=== PATIENT | female | born 1990 | race Caucasian/White ===

== ENCOUNTER 2017-10-23 02:54 | Emergency (ER) | payer MEDICAID, SELFPAY ==
[2017-10-23 02:56] VITALS: BP 131/69; PULSE 66; RESP 18; TEMP 36.9; O2SAT 98; BMI 34.7
--- NOTE | 2017-10-23 03:04 | CT_ITS ---
STUDY: CT ABDOMEN AND PELVIS WITHOUT CONTRAST REASON FOR EXAM: Female, 27 years old. Left flank and left lower quadrant pain. RADIATION DOSAGE (If Supplied By Facility): CTDIvol = ( 15.75 ) mGy, DLP = ( 830.38 ) mGycm TECHNIQUE: Transaxial images were obtained from the dome of the diaphragm to the symphysis pubis without oral contrast, and without intravenous contrast. Sagittal and coronal images were reconstructed. Individualized dose optimization techniques were used for this CT. COMPARISON: None. FINDINGS: The visualized lung bases are unremarkable. The visualized portions of the heart are within normal limits. Normal liver. Normal gallbladder and extrahepatic biliary system. Normal spleen. Normal pancreas. Normal bilateral adrenal glands. Normal right kidney. Minimal left hydronephrosis. 0.3 cm proximal ureteral stone. Normal visualized stomach. Normal small intestine. Normal colon. The appendix is well visualized and appears normal. Normal abdominal aorta. Normal inferior vena cava. Normal retroperitoneum. No intra-abdominal free air. Normal urinary bladder. Normal visualized uterus. No adnexal masses seen. Normal abdominal wall. Normal osseous structures. CT/Abdomen/Pelvis without Cont IMPRESSION: Minimal left hydronephrosis secondary to a 0.3 cm proximal ureteral stone. Electronically Signed: Darrius Harmon MD at 4:41 EST , Service support ,
--- NOTE | 2017-10-23 03:10 | ED.DCSUM_ITS ---
- ER Visit Summary Date of Service: 10/23/17 Chief Complaint: [Flank pain] History of Present Illness: The patient is a 27 F [presents the emergency department with left flank pain. It started about 1 hour ago. It woke her up from sleep. She has associated nausea. It is worse with standing up and lying on her stomach. Bowel movements have been normal. Urination has been normal. She has had a left oophorectomy and salpingectomy for tubal in the past no other abdominal surgeries. No fevers or chills. She rates the pain as a sharp 8 out of 10. She has never had similar pain in the past Hysical Examination: [] WN WD NAD PERRL EOMI MMM NECK supple and nontender, no masses RRR no murmur rub or gallop, no peripheral edema, symmetric radial pulses CTAB no respiratory distress ABDOMEN is soft she has tenderness in the left lower quadrant, normal bowel sounds, no distension, no rebound or guarding He has left CVA tenderness SKIN is warm and dry no rashes Alert and Oriented x3, CN II-XII in tact, no motor or sensory deficits, gait normal No lymphadenopathy Test Results: [] Emergency Department Course and Treatment: [She was given fluids morphine Zofran and Toradol. Screening labs are obtained. Urine was sent. CT of the abdomen and pelvis was obtained. He had a mild leukocytosis. BMP was normal. Urine had greater than 100 red blood cells but no evidence of infection. Patient was initially feeling better but then her pain came back. Given additional dose of morphine. CT showed a 3 mm stone with mild hydronephrosis on the left. She was given precautions for which she return to the emergency department. She will be did discharged with Percocet Zofran ibuprofen and Flomax. She has an appointment with a new doctor on Saturday. She does not know their name. She was advised to call their office and let them know about her visit to the emergency department. Treatment Plan: [] Disposition: [Discharge] Impression: [Left urolithiasis] This note was generated with [employer] dictation software. It may contain incorrect words, spelling, and punctuation that were not noted in review of the chart prior to signing ED Disposition - Plan for ED Patient: Chief Complaint: Flank Pain Referrals: Care Physician,No Primary [Primary Care Provider] -
[2017-10-23 03:18] LABS: Bacteria 0 SEEN /hpf (None Seen); Mucous, Urine 0 SEEN /hpf (<or=2+); White Blood Cells 0 SEEN /hpf (0-5)
[2017-10-23 03:19] LABS: Color, Urine Yellow (Yellow); Glucose, Dipstick Normal (Normal); Ketone-Dipstick 5 mg/dl (Negative); Leukocyte Esterase-Dipstick 25 /ul (Negative); Nitrite-Dipstick Negative (Negative); Occult Blood-Urine 250 /ul (Negative); Protein-Dipstick 30 mg/dl (Negative); Urine Bilirubin Dipstick Negative (Negative); Urine Clarity Cloudy (Clear); Urine Urobilinogen Normal (Normal)
[2017-10-23 03:31] LABS: Red Blood Cells-Urine > 100 SEEN /hpf (0-5); Squamous Epithelial Cells - UA 10-25 SEEN /hpf (5-10)
[2017-10-23] MEDS: Ketorolac 30 MG/ML Syringe IV (03:34)
[2017-10-23] MEDS: 0.9% Normal Saline 1,000 ML 1000 ML IV (03:34)
[2017-10-23] MEDS: Ondansetron 4 MG/2 ML Vial IV (03:34)
[2017-10-23 03:40] LABS: Absolute Lymphocyte Count 3.47 X10^3/ul (0.83-4.51); Absolute Neutrophil Count 6.9 X10^3/uL (2.0-7.7); Basophil# 0.02 X10^3/uL; Basophil% 0.2 % (0-1); Eosinophil# 0.49 X10^3/uL; Eosinophils% 4.2 % (0-5); Hematocrit 40.4 % (37-47); Hemoglobin 13.5 g/dl (12.0-15.0); Lymphocyte # 3.47 X10^3/ul (4.0); Lymphocyte % 29.4 % (19-41); Mean Corp Hgb Conc 33.4 g/gl (32-36); Mean Corpuscular Hgb 29.9 pg (27.0-32.0); Mean Corpuscular Volume 89.4 fL (81-99); Mean Platelet Vol. 9.8 fl (6.2-12.0); Monocyte# 0.85 X10^3/uL; Monocyte% 7.2 % (0-10); Neutrophil # 6.93 X10^3/uL (2.7-7.7); Neutrophil % 58.7 % (47-70); Platelet Count 319 K/mm3 (150-450); RBC Distribution Width CV 13.6 % (11.6-14.6); RBC Distribution Width SD 44.7 fl (35.1-43.9); Red Blood Count 4.52 M/mm3 (4.2-5.4); White Blood Count 11.8 K/mm3 (4.4-11.0)
[2017-10-23 03:41] LABS: POSITIVE COUNT NO; POSITIVE DIFFERENTIAL NO; POSITIVE MORPHOLOGY NO
[2017-10-23 03:56] LABS: AST(SGOT) 16 U/L (15-37); Alanine Aminotransfer ALT/SGPT 26 U/L (13-56); Albumin, Serum 3.9 g/dL (3.2-5.0); Alkaline Phosphatase 122 U/L (45-117); Anion Gap 7 (5-15); BUN 13 mg/dL (7-18); Calcium,Total 9.2 mg/dL (8.5-10.1); Chloride 107 mmol/L (98-107); Creatinine, Serum 0.72 mg/dL (0.55-1.02); EST Glomerular Filtration Rate 101 mL/min (>60); Est Glom Filt Rate - Afr Amer 122 mL/min (>60); Estimated Creatinine Clearance 103.74 ml/min; Glucose 132 mg/dL (74-106); Potassium 3.5 mmol/L (3.5-5.1); Protein, Total 7.9 g/dL (6.4-8.2); Sodium Level 142 mmol/L (136-145)
[2017-10-23 03:57] LABS: Pregnancy, Serum, hCG Quali. NEGATIVE Negative (0-9 Nonpreg)
--- NOTE | 2017-10-23 04:52 | ED.DEP ---
ED Disposition - Plan for ED Patient: Chief Complaint: Flank Pain Instructions: ED Stone Renal W Colic Prescriptions: Oxycodone HCl/Acetaminophen [Percocet 5/325] 1 - 2 tablet PO Q6H PRN PRN 3 Days #16 tablet PRN Reason: Pain Ondansetron [Zofran Odt] 4 mg PO Q8H PRN PRN #10 tablet PRN Reason: Nausea Ibuprofen 600 mg PO 4X/DAY PRN PRN #20 tablet PRN Reason: Pain Tamsulosin HCl [Flomax] 0.4 mg PO DAILY #7 capsule Referrals: your, doctor [Other] - 10/25/17
[2017-10-23 05:25] VITALS: BP 140/79; PULSE 88; RESP 18; O2SAT 98
== END 2017-10-23 05:26 | disposition home or self-care (01) ==
LOC: ED 04:29
PROVIDERS: Emergency Provider Emergency Medicine
DX: N20.9 Urinary calculus, unspecified (principal); N13.30 Unspecified hydronephrosis; Z72.0 Tobacco use
CPT/HCPCS: 74176; 80053; 81001; 84703; 85025; 99283; J7030; J2405

== ENCOUNTER → 2019-01-28 16:13 | Outpatient (CLI) | payer MEDICAID, SELFPAY ==
[2019-01-28 16:13] VITALS: BMI 34.7
[2019-01-28 18:53] LABS: Chlamydia Trachomatis by PCR Negative (Negative); Neisserai gonorrhoeae by PCR Negative (Negative); Probe Check PASS; Sample Adequacy Control PASS; Specimen Processing Control PASS
== END ==
PROVIDERS: Visit Provider Obstetrics & Gynecology
DX: Z11.3 Encounter for screening for infections with a predominantly sexual mode of transmission (principal)
CPT/HCPCS: 87491; 87591

== ENCOUNTER → 2019-02-02 09:02 | Outpatient (CLI) | payer MEDICAID, SELFPAY ==
[2019-01-28 16:13] VITALS: BMI 34.7
[2019-02-02 10:47] LABS: Color, Urine Yellow (Yellow); Glucose, Dipstick 1000 mg/dl (Normal); Ketone-Dipstick Negative (Negative); Leukocyte Esterase-Dipstick 25 /ul (Negative); Nitrite-Dipstick Negative (Negative); Occult Blood-Urine Negative /ul (Negative); Protein-Dipstick Negative (Negative); Urine Bilirubin Dipstick Negative (Negative); Urine Clarity Clear (Clear); Urine Urobilinogen Normal (Normal)
[2019-02-02 10:51] LABS: Absolute Lymphocyte Count 2.71 X10^3/ul (0.83-4.51); Absolute Neutrophil Count 6.8 X10^3/uL (2.0-7.7); Basophil# 0.03 X10^3/uL; Basophil% 0.3 % (0-1); Eosinophil# 0.46 X10^3/uL; Eosinophils% 4.3 % (0-5); Hematocrit 37.8 % (37-47); Hemoglobin 12.6 g/dl (12.0-15.0); Lymphocyte # 2.71 X10^3/ul (4.0); Lymphocyte % 25.2 % (19-41); Mean Corp Hgb Conc 33.3 g/gl (32-36); Mean Corpuscular Hgb 28.8 pg (27.0-32.0); Mean Corpuscular Volume 86.5 fL (81-99); Mean Platelet Vol. 10.3 fl (6.2-12.0); Monocyte# 0.63 X10^3/uL; Monocyte% 5.8 % (0-10); Neutrophil # 6.81 X10^3/uL (2.7-7.7); Neutrophil % 63.2 % (47-70); Platelet Count 304 K/mm3 (150-450); RBC Distribution Width CV 13.4 % (11.6-14.6); RBC Distribution Width SD 41.6 fl (35.1-43.9); Red Blood Count 4.37 M/mm3 (4.2-5.4); White Blood Count 10.8 K/mm3 (4.4-11.0)
[2019-02-02 10:53] LABS: POSITIVE COUNT NO; POSITIVE DIFFERENTIAL NO; POSITIVE MORPHOLOGY NO
[2019-02-02 11:06] LABS: Glucose Challenge Gest 1H 50g 184 mg/dL (70-140); Thyroid Stim Hormone (TSH) 1.42 uIU/mL (0.358-3.74)
[2019-02-02 12:14] LABS: HIV - WCH Non-Reactive (Nonreactive); Rubella IgG > 500.0 IU/mL
[2019-02-02 13:36] LABS: Amphetamine Urine VISTA NEGATIVE (<1000 ng/mL); Barbiturate Urine VISTA NEGATIVE (< 200 ng/mL); Benzodiazepine Urine VISTA NEGATIVE (< 200 ng/mL); Cocaine Urine VISTA NEGATIVE (< 300 ng/mL); Ecstacy Urine VISTA NEGATIVE (< 500 ng/mL); Methadone Urine VISTA NEGATIVE (< 300 ng/mL); PCP Urine VISTA NEGATIVE (< 25 ng/mL); THC Urine VISTA NEGATIVE (< 50 ng/mL); Vista UDS pH Range 5
[2019-02-03 16:36] LABS: HEPATITIS B SURFACE AG Negative (Negative); Hep C Antibodies <0.1 s/co ratio (0.0-0.9)
[2019-02-06 02:05] LABS: Prenatal RPR NONREACTIVE (NONREACTIVE)
== END ==
PROVIDERS: Visit Provider Obstetrics & Gynecology
DX: Z34.81 Encounter for supervision of other normal pregnancy, first trimester (principal)
CPT/HCPCS: 36415; 80307; 81002; 82950; 84443; 85025; 86703; 86762; 86803; 87340

== ENCOUNTER → 2019-02-23 09:48 | Outpatient (CLI) | payer MEDICAID, SELFPAY ==
[2019-01-28 16:13] VITALS: BMI 34.7
[2019-02-23 10:43] LABS: Glucose GTT-Gestation. Fasting 99 mg/dL (<105)
[2019-02-23 12:07] LABS: Glucose GTT-Gestational 1 Hr 198 mg/dL (<190)
--- NOTE | 2019-02-23 13:10 | CER_PTH ---
PATIENT: SLOAN COLLINS LOC: [facility] U#:[id number] AGE/SX: 34/F ROOM: RE02/23/[address]: Dr. Erica Morales MD : 1990 BED: DIS: SPEC #: [id number] RECD: 02/23/19 15:43 STATUS: STACEY REAleta #: [id number] DONNELL: 02/23/19 13:[address]: Erica Morales DEPT: SURGICAL PATHOLOGY RECD BY: Oleksandr Garcia ENTERED: 02/24/19 09:21 SP TYPE: CERV OTHR DR: No Primary Care Phys Tissues: Uterine cervix, NOS Procedures: Surgery Specimen Level IV HEADER OPERATION: Polypectomy PRE-OP DIAGNOSIS: Spotting TISSUE SUBMITTED: Cervical polyp MICROSCOPIC DIAGNOSIS Cervical polyp, polypectomy: Inflamed benign endocervical polyp with focal decidual changes. SJ:oscar 02/25/19 MICROSCOPIC DESCRIPTION Slides are reviewed. GROSS DESCRIPTION Received in fixative is one container labeled with the patient's name and designated cervical polyp. The specimen consists of a smooth, glistening, light austin polyp measuring 2 x 1 x 0.2 cm. The specimen is totally submitted in one cassette. / AM:oscar 02/24/19 TC:5 CPT: 44109
== END ==
PROVIDERS: Referring Provider Obstetrics & Gynecology; Visit Provider Obstetrics & Gynecology
DX: O99.810 Abnormal glucose complicating pregnancy (principal); Z3A.00 Weeks of gestation of pregnancy not specified; Z3A.01 Less than 8 weeks gestation of pregnancy; N84.1 Polyp of cervix uteri
CPT/HCPCS: 36415; 82951; 82952; 88305

== ENCOUNTER 2019-03-11 16:30 | Outpatient (RCR) | payer MEDICAID, SELFPAY ==
[2019-01-28 16:13] VITALS: BMI 34.7
== END 2019-03-15 23:59 | disposition home or self-care (01) ==
LOC: DC 16:30
PROVIDERS: Visit Provider Obstetrics & Gynecology
DX: O24.119 Pre-existing type 2 diabetes mellitus, in pregnancy, unspecified trimester (principal)
CPT/HCPCS: 97802; G0108

== ENCOUNTER 2019-03-31 14:00 | Outpatient (RCR) | payer MEDICAID, SELFPAY ==
[2019-01-28 16:13] VITALS: BMI 34.7
== END 2019-04-15 23:59 ==
LOC: DC 14:00
PROVIDERS: Visit Provider Obstetrics & Gynecology
DX: O24.119 Pre-existing type 2 diabetes mellitus, in pregnancy, unspecified trimester (principal); Z3A.00 Weeks of gestation of pregnancy not specified

== ENCOUNTER 2019-04-27 11:00 | Outpatient (RCR) | payer MEDICAID, SELFPAY ==
[2019-01-28 16:13] VITALS: BMI 34.7
== END 2019-05-16 23:59 ==
LOC: DC 11:00
PROVIDERS: Visit Provider Obstetrics & Gynecology
DX: O24.119 Pre-existing type 2 diabetes mellitus, in pregnancy, unspecified trimester (principal); Z3A.00 Weeks of gestation of pregnancy not specified

== ENCOUNTER → 2019-06-29 11:46 | Outpatient (CLI) | payer BC, MEDICAID, SELFPAY ==
[2019-01-28 16:13] VITALS: BMI 34.7
[2019-06-29 13:27] LABS: Hematocrit 34.5 % (37-47); Hemoglobin 11.5 g/dL (12.0-15.0); Mean Corp Hgb Conc 33.3 g/dL (32-36); Mean Corpuscular Hgb 30.3 pg (27.0-32.0); Mean Corpuscular Volume 90.8 fL (81-99); Mean Platelet Vol. 10.1 fl (6.2-12.0); Platelet Count 325 K/mm3 (150-450); RBC Distribution Width SD 45.5 fl (35.1-43.9); White Blood Count 12.8 K/mm3 (4.4-11.0)
== END ==
PROVIDERS: Visit Provider Obstetrics & Gynecology
DX: Z34.93 Encounter for supervision of normal pregnancy, unspecified, third trimester (principal)
CPT/HCPCS: 36415; 85027

== ENCOUNTER 2019-08-13 10:45 | Outpatient (CLI) | payer BC, MEDICAID, SELFPAY ==
[2019-01-28 16:13] VITALS: BMI 34.7
[2019-08-13 11:07] VITALS: BMI 36.2
--- NOTE | 2019-08-13 23:55 | OB.TRI.NOTE ---
- Problem List (1) 34 weeks gestation of Status: Acute (2) Gestational diabetes Status: Acute Qualifiers: Gestational diabetes mellitus control: insulin-controlled Trimester: third trimester Qualified Code(s): O24.414 - Gestational diabetes mellitus in , insulin controlled History of Present Illness Date of Service: 08/13/19 Was patient seen by the physician?: No Reason For Visit: NST Final BHANU: 09/19/19 Gestational age: 34 Weeks and 5 Days History of Present Illness: 28yo @ 34 5/7wga hx GDMA2 on insulin for scheduled NST Allergies Penicillins [PCN] Allergy (Verified 08/13/19 11:09) Rash - Pertinent Past Medical History Medical History: Past Medical History (Last Updated 05/06/18 @ 08:45 by Sylvia Laws) Acid reflux Anxiety Pilonidal cyst Surgical History: Past Surgical History (Last Updated 05/06/18 @ 08:47 by Sylvia Laws) history excision ectopic NST - FHR Rate Baby A Baseline: 145 Variability:: Moderate Accelerations:: 15 x 15 Decelerations:: None NST Reactive:: Yes FHR Category:: Category I Uterine Activity:: 09/25 Impression/Plan Reactive NST, Cat I FHR d/c home
== END 2019-08-13 11:30 | disposition home or self-care (01) ==
LOC: WPOUT 10:49 → WP 10:50
PROVIDERS: Referring Provider Obstetrics & Gynecology; Visit Provider Obstetrics & Gynecology
DX: O24.414 Gestational diabetes mellitus in pregnancy, insulin controlled (principal); O99.343 Other mental disorders complicating pregnancy, third trimester; F41.9 Anxiety disorder, unspecified; Z88.0 Allergy status to penicillin; Z79.4 Long term (current) use of insulin; Z3A.34 34 weeks gestation of pregnancy; O99.613 Diseases of the digestive system complicating pregnancy, third trimester; K21.9 Gastro-esophageal reflux disease without esophagitis
CPT/HCPCS: 59025

== ENCOUNTER → 2019-08-28 11:36 | Outpatient (CLI) | payer BC, MEDICAID, SELFPAY ==
[2019-08-13 11:07] VITALS: BMI 36.2
== END ==
PROVIDERS: Visit Provider Obstetrics & Gynecology
DX: Z36.85 Encounter for antenatal screening for Streptococcus B (principal)
CPT/HCPCS: 87081

== ENCOUNTER 2019-09-10 14:04 | Inpatient (IN) | payer BC, MEDICAID, SELFPAY ==
[2019-09-10 14:36] VITALS: BMI 37.7
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
[2019-09-10] MEDS: Lactated Ringers 1,000 ML 50 ML IV (15:20)
[2019-09-10 15:46] LABS: Bedside Glucose 140 mg/dL (70-110)
[2019-09-10 16:27] LABS: Absolute Lymphocyte Count 1.95 X10^3/uL (0.83-4.51); Absolute Neutrophil Count 10.5 X10^3/uL (2.0-7.7); Basophil# 0.04 X10^3/uL; Basophil% 0.3 % (0-1); Eosinophil# 0.21 X10^3/uL; Eosinophils% 1.5 % (0-5); Hematocrit 37.4 % (37-47); Hemoglobin 12.5 g/dL (12.0-15.0); Lymphocyte # 1.95 X10^3/ul (4.0); Lymphocyte % 14.2 % (19-41); Mean Corp Hgb Conc 33.4 g/dL (32-36); Mean Corpuscular Hgb 29.8 pg (27.0-32.0); Mean Platelet Vol. 10.5 fl (6.2-12.0); Monocyte% 5.8 % (0-10); NRBC Flagged by Analyzer 0 % (0-5); Neutrophil # 10.54 X10^3/uL (2.7-7.7); Platelet Count 331 K/mm3 (150-450); RBC Distribution Width CV 14.2 % (11.6-14.6); RBC Distribution Width SD 46.1 fl (35.1-43.9); White Blood Count 13.7 K/mm3 (4.4-11.0)
[2019-09-10] MEDS: miSOPROStol 25 MCG TABLET PO ×2 (16:59→21:06)
[2019-09-10 17:01] LABS: Bedside Glucose 106 mg/dL (70-110)
[2019-09-10 17:51] LABS: Bedside Glucose 96 mg/dL (70-110)
[2019-09-10] MEDS: Insulin Lispro 100 UNIT/ML INSULN.PEN 18 UNIT SC (17:52)
--- NOTE | 2019-09-10 18:49 | PCM.PN.BLA ---
Progress Note 28yo @ 38 5/7wga hx GDMA2 on insulin, BMI 37, BPP 6/10 today presents for cytotec induction of labor. PMH reviewed and significant for unilateral salpingectomy for hx ectopic , endometriosis incidentally noted at the time of surgery, G1 with GDMA and shoulder dystocia. EFW 3392g (7lb8oz - 72nd%) on 08/31/19 with HC/AC 0.94, AC 95th%. AVSS, Cervix unfavorable, FHR Category I, TOCO - 0 ctx. Discussed general ophthalmologist, delivery related risks including need for potential procedures including D&C, hysterectomy. Reviewed with patient increased risk for shoulder dystocia, indication for section. Offered section, reviewed associated risks including but not limited to infection, injury to abdominal organs, bleeding or hemorrhage requiring further surgery, scarring, increased risk for future Cesaean section, accreta d/o - possibly necessitating hysterectomy in future relative to risks for vaginal delivery. Reviewed associated risks of shoulder dystocia including clavicular or humoral fracture, brachial plexus injury with transient or permanent deficits, HIE, cerebral palsy, . Following discussion, pt indicates desire to continue in labor. L&D consents signed. Blood transfusion acceptable.
[2019-09-10 21:55] LABS: Bedside Glucose 127 mg/dL (70-110)
[2019-09-10] MEDS: Insulin NPH Human 100 UNITS/ML PEN 16 UNITS SC (22:07)
[2019-09-10] MEDS: Mag Hydrox/Al Hydrox/Simeth 30 ML UDC PO (23:12)
--- NOTE | 2019-09-10 23:20 | NURSING ---
Dr. Dale Wang notified of BGT 127. Order given to give 16 units of NPH insulin at bedtime. Will recheck in one hour after insulin.
[2019-09-10 23:35] LABS: Bedside Glucose 121 mg/dL (70-110)
[2019-09-11 00:25] LABS: Bedside Glucose 99 mg/dL (70-110)
[2019-09-11] MEDS: miSOPROStol 25 MCG TABLET PO ×2 (00:30→04:25)
[2019-09-11 04:41] LABS: Bedside Glucose 79 mg/dL (70-110)
--- NOTE | 2019-09-11 04:47 | PCM.PN.BLA ---
Progress Note LABOR PROGRESS NOTE-- O NEG, Antibody negative. 39 wk induction Insulin requiring pregestational diabetes. Cytotec induction. Last dose per RN notes given at 0423 am (approx) Cervix then 1-2/60/-2 AVSS EFM: 130s avg variability. Accels to 150s Category I tracing with irreg UCs q 2-6 mins A/P: 39 wk EGA prior vaginal delivery with shoulder dystocia. Fetus under ACOG recommendations for C section. Pt made aware of potential for shoulder dystocia during M care and during care in [facility]. Same issues addressed and recorded in Dr Dale Wang's note. Continue induction of labor, close observation of progress and descent. Plan AROM, Pitocin, possible Montejo bulb placement as next steps of induction.
[2019-09-11] MEDS: 0.9% Normal Saline Single 100 ML IV.SOLN. IY (07:26)
--- NOTE | 2019-09-11 07:33 | PCM.PN.BLA ---
Progress Note LABOR PROGRESS NOTE Uncomfortable AVSS S/P cytotec overnight, last dose approx 0430 am EFM 130-140s avg variability Category I tracing Irreg UCs CX: 2 / 50/ high, mid position. Moderate consistency Colindres bulb inserted 30 cc NS into balloon. Tolerated placement relatively well. AROM with colindres inserted. Clear fluid, moderate amount. A/P: 39 wk pre-gestational diabetes, on insulin for . M recommended induction at 39 wks. BPP 09/10/19 also 02/23 so induction started at 38 6/7 wk with unfavorable cervix. S/P Cytotec. Now AROM and pitocin planned. Colindres bulb placed for colindres bulb induction. Prior hx of shoulder dystocia. Advised again of potential for repeat shoulder dystocia with this baby. Advised per ACOG guidelines OK to try vaginal . Declines c section. Continue induction of labor. Follow closely for blood sugar control, tolerance of labor and for progress of labor.
[2019-09-11 08:10] LABS: Bedside Glucose 88 mg/dL (70-110)
[2019-09-11] MEDS: Oxytocin 30 units/NS 500 ml 30 UNITS/500 ML IV.SOLN IV (08:39)
[2019-09-11 08:55] LABS: Bedside Glucose 81 mg/dL (70-110)
[2019-09-11] MEDS: Nalbuphine 10 MG/ML Ampul IV ×2 (09:28→12:39)
[2019-09-11 10:00] LABS: Bedside Glucose 84 mg/dL (70-110)
[2019-09-11 11:25] LABS: Bedside Glucose 79 mg/dL (70-110)
[2019-09-11 12:06] LABS: Bedside Glucose 79 mg/dL (70-110)
[2019-09-11 13:16] LABS: Bedside Glucose 72 mg/dL (70-110)
[2019-09-11] MEDS: Lactated Ringers 1,000 ML 200 ML IV (14:50)
[2019-09-11 15:06] LABS: Bedside Glucose 75 mg/dL (70-110)
[2019-09-11 15:06] LABS: Bedside Glucose 88 mg/dL (70-110)
[2019-09-11] MEDS: Oxytocin 30 units/NS 500 ml 30 UNITS/500 ML IV.SOLN 334 UNITS IV (15:49)
--- NOTE | 2019-09-11 16:37 | PCM.OPRPT ---
Vaginal Delivery Maternal Presentation: Medically Indicated Induction 38 6/7 wk EGA induction for insulin requiring diabetes and BPP 6/10 Method of Induction: Pitocin, Montejo Bulb, Amniotomy, Cytotec Medical Reason for Induction: Maternal Medical Condition: list: - insulin requiring diabetes Amniotic Membrane Rupture Type: Artificial Amniotic Fluid Description: Clear Final BHANU: 09/18/19 Gestational age: 39 Weeks and 0 Days Date of Procedure: 09/11/19 Pre-Operative Diagnosis: 39 wk EGA insulin requiring diabetes MFM recommended induction Post-Operative Diagnosis: Same Surgery/ Procedure Performed: Spontaneous Vaginal Delivery Type of Anesthesia: None Description of Procedure: of a beal viable male over intact perineum. Head delivered ISRAEL. No nuchal cord. Shoulder dystocia noted partially due to poor maternal expulsive effort. Maria Guadalupe maneuver, Suprapubic pressure, forward rotation of shoulder (Wood screw maneuver) and maternal expulsive effort 45 sec with head on perineum prior to delivery of the shoulders by above maneuvers, maternal expulsive effort then and gentle traction. Cord clamped times two and cut. OP and nares then bulb suctioned. to isolette for stimulation. End stage meconium noted. Routine cord blood for typing and cord gases sent. PP exam; no lacerations noted Placenta delivered by spont expulsion, expression. 3V cord ,normal appearing, intact with trailing membranes. EBL 250 cc Pt and infant tolerated delivery well. to recovery , stable condition. Ray Baldomero and needle counts correct times two. Presentation: Vertex, ISRAEL Placental Delivery Description: Spontaneous, Expressed Placenta Disposition: [facility] Cord Vessel Description: 3 Vessels Cord Gases drawn per routine: ABG, VBG Cord Entanglement: None Estimated Blood Loss: 250 A gender: Male (1 minute): 8 (5 minute): 9 Episiotomy Description: None Laceration: None Medications given after delivery: IV Pitocin Complications: None
[2019-09-11 17:05] LABS: Bedside Glucose 102 mg/dL (70-110)
[2019-09-11] MEDS: Ibuprofen 600 MG Tablet PO (18:17)
[2019-09-11] MEDS: 0.9% Saline Lock 10 ML Syringe IV (18:53)
[2019-09-11 20:31] LABS: Bedside Glucose 230 mg/dL (70-110)
[2019-09-11 20:46] VITALS: BP 105/53; PULSE 102; RESP 16; TEMP 37.2; O2SAT 94
[2019-09-11 22:21] LABS: Bedside Glucose 147 mg/dL (70-110)
[2019-09-12] VITALS (7 sets, daily range): BP systolic 97–114; BP diastolic 66–79; PULSE 81–100; RESP 16–18; TEMP 36.6–37.3; O2SAT 93–96
[2019-09-12] MEDS: Ibuprofen 600 MG Tablet PO ×4 (00:53→21:26)
[2019-09-12 05:10] LABS: Bedside Glucose 109 mg/dL (70-110)
[2019-09-12 10:16] LABS: Bedside Glucose 157 mg/dL (70-110)
[2019-09-12] MEDS: Acetaminophen 500 MG Tablet 1000 MG PO (12:18)
[2019-09-12 13:51] LABS: Bedside Glucose 107 mg/dL (70-110)
--- NOTE | 2019-09-12 14:38 | PCM.PN.OB ---
Subjective: Pain well controlled, tolerating diet, passing flatus; being treated for hyperbilirubinemia but nursing well; spouse bedside and supportive Objective: AVSS w/mild-moderately elevated capillary blood glucose readings Breasts filling, nipples atraumatic Fundus firm, midline, u/2, lochia scant - Physical Exam Vitals/I&O's: Vital Signs Temp Pulse Resp BP Pulse Ox 98.0 F 91 18 97/66 93 09/12/19 12:00 09/12/19 12:00 09/12/19 12:00 09/12/19 12:00 09/12/19 04:10 Oxygen Delivery Method Room Air Weight: 219 lb 12.814 oz Body Mass Index (BMI) 37.7 Intake and Output for Last 24 Hours 09/10/19 09/11/19 09/12/19 23:59 23:59 23:59 Intake Total 215 / 215 1396.17 / 1396.17 Balance 215 / 215 1396.17 / 1396.17 General: Alert, Oriented x3, Cooperative - does not adhere to recommended diet HEENT: PERRLA, EOMI Oral: Moist Mucosa Neck: Supple Lungs: Clear to auscultation, Normal air movement Cardiovascular: Regular rate, Regular Rhythm Abdomen: Bowel Sounds Present, Soft, Non Tender, Non-Distended, Passing Flatus, Obese Extremities: Edema - mild, bilateral lower extremities Skin: No rashes Musculoskeletal: No Tenderness to Palpation of Joints or Extremities Neurological: Cranial nerves II-XII grossly intact, Deep Tendon Reflexes 2+/4 and Symmetrical, Neuro grossly intact Psych/Mental Status: Normal Affect, Appropriate, Alert and oriented to time, place, person, mood and affect Laboratory Results 09/11/19 13:56: POC Glucose 75 09/11/19 14:53: POC Glucose 88 09/11/19 16:16: POC Glucose 102 09/11/19 20:10: POC Glucose 230 H 09/11/19 22:12: POC Glucose 147 H 09/12/19 04:58: POC Glucose 109 09/12/19 10:07: POC Glucose 157 H 09/12/19 13:45: POC Glucose 107 Current Medications Acetaminophen (Tylenol) 1,000 mg PO Q8H PRN PRN PRN Reason: Pain Score 1-3/10 Last Admin: 09/12/19 12:18 Dose: 1,000 mg Documented by: Bisacodyl (Dulcolax) 10 mg RECTAL UD PRN PRN Reason: If no BM Dibucaine (Dibucaine) 1 applic TOPICAL TID PRN PRN; Protocol PRN Reason: Discomfort Glucagon () 1 mg IM .X1 PRN PRN Reason: Hypoglycemia Hydrocortisone (Hytone) 1 applic TOPICAL TID PRN PRN; Protocol PRN Reason: Discomfort Dextrose (Dextrose 10%-Water) 250 mls @ 999 mls/hr IV X1 PRN; Protocol PRN Reason: HYPOGLYCEMIA Ibuprofen (Motrin) 600 mg PO Q6H PRN PRN PRN Reason: Pain Score 1-3/10 Last Admin: 09/12/19 07:54 Dose: 600 mg Documented by: Methylergonovine Maleate (Methergine) 0.2 mg IM X1 PRN PRN Reason: Excess bleeding/uterine atony Ondansetron HCl (Zofran) 4 mg IV Q4H PRN PRN PRN Reason: Nausea Senna/Docusate Sodium (Senokot-S, Gypsy-Colace) 1 - 2 tablet PO DAILY PRN PRN PRN Reason: Constipation Simethicone (Mylicon) 80 mg PO PCHS PRN PRN Reason: Indigestion/Stomach pain Sodium Chloride () 5 - 15 ml IV UD PRN PRN Reason: SALINE FLUSH Last Admin: 09/11/19 18:53 Dose: 10 ml Documented by: Zolpidem Tartrate (Ambien (Generic)) 5 mg PO QHS PRN PRN PRN Reason: Insomnia Medical Necessity - Tobacco Use Smoking Status: Never smoker Assessment/Plan All Active Problems (Last Updated 05/06/18 @ 08:45 by Sylvia Laws) 34 weeks gestation of (Acute) Gestational diabetes (Acute) Assesement: 28yo G3 now P2012 delivered via at 39w0d gestation by 7w2d US IDGDM, insulin discontinued post delivery; pt not compliant w/prescribed diet Day #1, normal involution Plan: Discharge teaching started Continue plan of care Discharge home tomorrow
--- NOTE | 2019-09-12 16:25 | DCINST_ITS ---
Discharge Diet: No Restrictions Discharge Activity: May Shower, May Take a Tub Bath May resume sexual activity in: 4-6 weeks Additional Activity Instructions:: Nothing in the vagina for 4-6 weeks. You may return to work/school in 6 weeks. Additional Instructions: If you experience any of the following, contact your healthcare provider. * Bleeding that soaks a pad every hour for 2 hours * Fever 100.4 or higher * Unrelieved abdominal pain * Problems urinating (including inability to urinate or burning while urinating). * Visual changes * Severe headache * Flu-like symptoms * Pain or redness in one of both of your breasts * Pain, warmth, tenderness or swelling in your legs, especially the calf area * Frequent nausea and vomiting * Symptoms of depression or anxiety If you experience any of the following, call 911 or go to the nearest Emergency Room. * Chest pain * Problems breathing * Seizure activity * Partial or complete paralysis of a body part, slurred speech, weakness or drooping of the face, or a sudden inability to walk or hold your balance Allergies/Adverse Reactions: Allergies Penicillins [PCN] Allergy (Verified 09/10/19 14:38) Rash Medications to take at Discharge Vits [Prenatabs FA ] 1 tab PO DAILY 09/10/19 Metformin HCl [Glucophage] 500 mg PO BID #60 tab 09/12/19 The following prescriptions were given: Metformin HCl [Glucophage] 500 mg PO BID #60 tab Transmission Status: Pending to [address] Please Follow Up With: Marielle Verduzco, [facility] - [phone] When: Call to make an appointment with your provider in 2 weeks. Bring in your blood sugar record. You should continue to take fingerstick glucoses. 1.) daily fasting. 2.) and at least one of the 1 hour after meal values to be checked daily. Primary Care Physician: Care Physician,No Primary [Primary Care Provider] - Test Results: Test results from this visit will be discussed in further detail at your follow- up appointment, if applicable. Proposed Discharge Date: 09/13/19
--- NOTE | 2019-09-12 16:25 | PCM.DCVAG ---
Discharge Diet: No Restrictions Discharge Activity: May Shower, May Take a Tub Bath May resume sexual activity in: 4-6 weeks Additional Activity Instructions:: Nothing in the vagina for 4-6 weeks. You may return to work/school in 6 weeks. Additional Instructions: If you experience any of the following, contact your healthcare provider. Bleeding that soaks a pad every hour for 2 hours Fever 100.4 or higher Unrelieved abdominal pain Problems urinating (including inability to urinate or burning while urinating). Visual changes Severe headache Flu-like symptoms Pain or redness in one of both of your breasts Pain, warmth, tenderness or swelling in your legs, especially the calf area Frequent nausea and vomiting Symptoms of depression or anxiety If you experience any of the following, call 911 or go to the nearest Emergency Room. Chest pain Problems breathing Seizure activity Partial or complete paralysis of a body part, slurred speech, weakness or drooping of the face, or a sudden inability to walk or hold your balance Allergies/Adverse Reactions: Allergies Penicillins [PCN] Allergy (Verified 09/10/19 14:38) Rash Medications to take at Discharge Vits [Prenatabs FA ] 1 tab PO DAILY 09/10/19 Metformin HCl [Glucophage] 500 mg PO BID #60 tab 09/12/19 The following prescriptions were given: Metformin HCl [Glucophage] 500 mg PO BID #60 tab Transmission Status: Pending to [facility] Please Follow Up With: Marielle Verduzco, [facility] - [phone] When: Call to make an appointment with your provider in 2 weeks. Bring in your blood sugar record. You should continue to take fingerstick glucoses. 1.) daily fasting. 2.) and at least one of the 1 hour after meal values to be checked daily. Primary Care Physician: Care Physician,No Primary [Primary Care Provider] - Test Results: Test results from this visit will be discussed in further detail at your follow-up appointment, if applicable. Proposed Discharge Date: 09/13/19
[2019-09-12] MEDS: metFORMIN HCl 500 MG Tablet PO (18:25)
[2019-09-12 19:25] LABS: Bedside Glucose 123 mg/dL (70-110)
[2019-09-13 02:00] VITALS: BP 114/72; PULSE 83; RESP 14; TEMP 36.5
[2019-09-13 06:30] LABS: Bedside Glucose 99 mg/dL (70-110)
[2019-09-13] MEDS: Ibuprofen 600 MG Tablet PO ×2 (06:30→12:33)
[2019-09-13 09:39] VITALS: BP 110/68; PULSE 84; RESP 16; TEMP 36.6
[2019-09-13] MEDS: metFORMIN HCl 500 MG Tablet PO (10:16)
[2019-09-13] MEDS: Acetaminophen 500 MG Tablet 1000 MG PO (10:19)
--- NOTE | 2019-09-13 10:26 | PCM.PN.OB ---
Subjective: Pain well controlled, tolerating diet, passing flatus; has had a bowel movement; nursing well, no longer under bili lights; spouse bedside and supportive Objective: AVSS w/moderately elevated capillary blood glucose measurements Breasts filling, nipples atraumatic Fundus firm, midline, u/2, lochia small - Physical Exam Vitals/I&O's: Vital Signs Temp Pulse Resp BP Pulse Ox 97.8 F 84 16 110/68 96 09/13/19 09:39 09/13/19 09:39 09/13/19 09:39 09/13/19 09:39 09/12/19 20:25 Oxygen Delivery Method Room Air Weight: 219 lb 12.814 oz Body Mass Index (BMI) 37.7 Intake and Output for Last 24 Hours 09/11/19 09/12/19 09/13/19 23:59 23:59 23:59 Intake Total 1396.17 / 1396.17 Balance 1396.17 / 1396.17 General: Alert, Oriented x3, Cooperative, No apparent distress HEENT: PERRLA, EOMI Oral: Moist Mucosa Neck: Supple Lungs: Clear to auscultation, Normal air movement Cardiovascular: Regular rate, Regular Rhythm Abdomen: Bowel Sounds Present, Soft, Non Tender, Non-Distended, Passing Flatus, Obese Extremities: No cyanosis, Capillary Refill Less than 3 Seconds, No Calf Tenderness, Edema - Mild, non pitting, bilateral lower extremities Musculoskeletal: No Tenderness to Palpation of Joints or Extremities Neurological: Cranial nerves II-XII grossly intact, Deep Tendon Reflexes 2+/4 and Symmetrical, Neuro grossly intact Psych/Mental Status: Normal Affect, Appropriate, Alert and oriented to time, place, person, mood and affect Laboratory Results 09/12/19 13:45: POC Glucose 107 09/12/19 19:22: POC Glucose 123 H 09/13/19 06:26: POC Glucose 99 Current Medications Acetaminophen (Tylenol) 1,000 mg PO Q8H PRN PRN PRN Reason: Pain Score 1-3/10 Last Admin: 09/13/19 10:19 Dose: 1,000 mg Documented by: Bisacodyl (Dulcolax) 10 mg RECTAL UD PRN PRN Reason: If no BM Dibucaine (Dibucaine) 1 applic TOPICAL TID PRN PRN; Protocol PRN Reason: Discomfort Hydrocortisone (Hytone) 1 applic TOPICAL TID PRN PRN; Protocol PRN Reason: Discomfort Ibuprofen (Motrin) 600 mg PO Q6H PRN PRN PRN Reason: Pain Score 1-3/10 Last Admin: 09/13/19 06:30 Dose: 600 mg Documented by: Metformin HCl (Glucophage) 500 mg PO BIDCM KEYUR Last Admin: 09/13/19 10:16 Dose: 500 mg Documented by: Methylergonovine Maleate (Methergine) 0.2 mg IM X1 PRN PRN Reason: Excess bleeding/uterine atony Senna/Docusate Sodium (Senokot-S, Gypsy-Colace) 1 - 2 tablet PO DAILY PRN PRN PRN Reason: Constipation Simethicone (Mylicon) 80 mg PO PCHS PRN PRN Reason: Indigestion/Stomach pain Zolpidem Tartrate (Ambien (Generic)) 5 mg PO QHS PRN PRN PRN Reason: Insomnia Medical Necessity - Tobacco Use Smoking Status: Never smoker Assessment/Plan All Active Problems (Last Updated 05/06/18 @ 08:45 by Sylvia Laws) 34 weeks gestation of (Acute) Gestational diabetes (Acute) Assessment: 28yo G3 now P2012 delivered via at 39w0d gestation by 7w2d US IDGDM, insulin discontinued post delivery, capillary blood glucose remains mildly to moderately elevated Day #2, normal involution, normal course Plan: Discharge teaching completed; extensive discussion re: management of glucose control via diet, exercise; strongly recommended PCP for monitoring and nutrition consult Continue capillary blood sugar checks, daily fasting and at least one post prandial 1-2 hours after a meal Continue Metformin as prescribed RTO 2 weeks for blood sugar check, bring blood sugar log for review
[2019-09-13 12:46] LABS: Bedside Glucose 97 mg/dL (70-110)
[2019-09-13 14:00] VITALS: BP 117/73; PULSE 74; RESP 16; TEMP 36.6
== END 2019-09-13 14:20 | disposition home or self-care (01) | DRG 807 ==
PROVIDERS: Obstetrics & Gynecology; Admitting Provider Obstetrics & Gynecology; Visit Provider Obstetrics & Gynecology
DX: O24.424 Gestational diabetes mellitus in childbirth, insulin controlled (principal); Z37.0 Single live birth; O66.0 Obstructed labor due to shoulder dystocia; O77.0 Labor and delivery complicated by meconium in amniotic fluid; Z3A.39 39 weeks gestation of pregnancy
CPT/HCPCS: 59025; 59050; 82962; 85025; 86850; 86900; 86901; 99218; J7120; A4216; G0378

== ENCOUNTER → 2020-03-30 | Outpatient (CLI) | payer BC, MEDICAID, SELFPAY ==
[2020-04-07 08:08] LABS: Age Gdln ACOG Testing 30-65 (.)
[2020-04-07 15:47] LABS: HPV APTIMA, High Risk Negative (Negative); HPV Reflexed? YES, CHARGE PATIENT
== END | disposition home or self-care (01) ==
LOC: LABSPEC 14:09
PROVIDERS: Visit Provider Obstetrics & Gynecology
DX: Z12.4 Encounter for screening for malignant neoplasm of cervix (principal)
CPT/HCPCS: 87624; 88175; G0145

== ENCOUNTER → 2021-06-08 09:51 | Outpatient (CLI) | payer BC, MEDICAID, SELFPAY ==
[2021-06-14 09:28] LABS: HPV APTIMA, High Risk Negative (Negative)
== END ==
PROVIDERS: Visit Provider Obstetrics & Gynecology
DX: Z12.4 Encounter for screening for malignant neoplasm of cervix (principal)
CPT/HCPCS: 87624; 88175; G0145

== ENCOUNTER → 2021-08-29 11:15 | Outpatient (CLI) | payer BC, MEDICAID, SELFPAY ==
[2021-08-29 15:15] LABS: Absolute Lymphocyte Count 3.05 X10^3/uL (0.83-4.51); Absolute Neutrophil Count 4.5 X10^3/uL (2.0-7.7); Basophil# 0.04 X10^3/uL; Basophil% 0.5 % (0-1); Eosinophil# 0.21 X10^3/uL; Eosinophils% 2.5 % (0-5); Hemoglobin 13.2 g/dL (12.0-15.0); Lymphocyte # 3.05 X10^3/ul (0.83-4.51); Lymphocyte % 36.6 % (19-41); Mean Corpuscular Hgb 29.7 pg (27.0-32.0); Mean Corpuscular Volume 90.1 fL (81-99); Mean Platelet Vol. 10.6 fl (6.2-12.0); Monocyte# 0.49 X10^3/uL; Monocyte% 5.9 % (0-10); NRBC Flagged by Analyzer 0 % (0-5); Neutrophil # 4.51 X10^3/uL (2.7-7.7); Neutrophil % 54.1 % (47-70); Platelet Count 398 K/mm3 (150-450); RBC Distribution Width CV 12.9 % (11.6-14.6); RBC Distribution Width SD 42.5 fl (35.1-43.9); Red Blood Count 4.44 M/mm3 (4.2-5.4); White Blood Count 8.3 K/mm3 (4.4-11.0)
[2021-08-29 15:46] LABS: Anion Gap 8 (5-15); BUN 18 mg/dL (7-18); BUN/Creat Ratio 23.5 RATIO (10-20); Calcium,Total 9.2 mg/dL (8.5-10.1); Chloride 107 mmol/L (98-107); Creatinine, Serum 0.76 mg/dL (0.55-1.02); EST Glomerular Filtration Rate 93 mL/min (>60); Est Glom Filt Rate - Afr Amer 112 mL/min (>60); Glucose 78 mg/dL (74-106); Potassium 3.7 mmol/L (3.5-5.1); Sodium Level 140 mmol/L (136-145)
[2021-08-31 16:09] LABS: QNTFERON TB Mitogen Value > 10.00 IU/mL (.); QNTFERON TB Nil Value 0 IU/mL (.); QNTFERON TB1+ Ag Value 0 IU/mL (.); QNTFERON TB2+ Ag Value 0 IU/mL (.)
[2021-08-31 21:41] LABS: QNTIFERON TB Positive Criteria Negative (Negative)
== END ==
PROVIDERS: PCP Nurse Practitioner Family; Referring Provider Dermatology; Visit Provider Dermatology
DX: L73.2 Hidradenitis suppurativa (principal)
CPT/HCPCS: 36415; 80048; 85025; 86480

== ENCOUNTER 2022-06-27 10:34 | Emergency (ER) | payer BC, MEDICAID, SELFPAY ==
[2022-06-27 10:35] VITALS: BP 114/80; PULSE 107; RESP 22; TEMP 36.2; O2SAT 98; BMI 33.3
--- NOTE | 2022-06-27 10:53 | EDS_ITS ---
HPI History of Present Illness Chief Complaint: Back Informant: patient Onset/Context/Timing Onset: Weeks (1) Context: Gradual Onset Timing: Continuous Quality: Aching, fatigue Location: Generalized Worsened by: Nothing Relieved by: Nothing Narrative Narrative: Patient presents with back pain that became worse after a fall last night. Patient states she has been having some bilateral flank pain for the past week. Patient states she saw her primary care physician for this who did a urinalysis which showed some blood in her urine and a questionable infection. Patient states she has been having more aching and fatigue from this. Patient states she feels tired. Patient states that last night she fell down approximately 3-4 steps. Patient is unsure if she passed out which caused her to fall. Patient now has pain in the middle of her back and both knees. Patient denies any difficulty ambulating. Patient admits to some subjective chills but denies any fevers. Patient admits to some nausea but denies any vomiting. Patient admits to some mild dysuria and frequency. [facility] Medical History Acid reflux Anxiety Pilonidal cyst Home Medications vits,calcium no.78-iron fumarate-folic acid 29 mg-1 mg tablet 1 tab PO DAILY 09/10/19 [History Last Taken Unknown] metformin 500 mg tablet 500 mg PO BID diabetes #60 tabs 09/12/19 [Rx Last Taken Unknown] sulfamethoxazole 800 mg-trimethoprim 160 mg tablet 1 tab PO BID #6 TABLETS 06/27/22 [Rx Last Taken Unknown] Allergy/AdvReac Type Severity Reaction Status Date / Time Penicillins [PCN] Allergy Rash Verified 06/27/22 10:35 Family History (Updated 05/06/18 @ 08:48 by Sylvia Laws) Grandmother Breast cancer Diabetes Kidney disease Mother Diabetes CVA (cerebral vascular accident) Father Diabetes Sister Diabetes Surgical History history excision ectopic Social History Smoking Status: Never smoker alcohol intake: never substance use type: does not use ROS ROS ED Constitutional Constitutional ED: Reports chills and subjective; Denies fever(s) Eyes Eyes: Denies blurry vision or change in vision ENT ENT ED: Denies rhinorrhea or sore throat Cardiovascular Cardiovascular: Denies chest pain or palpitations Respiratory/Chest Respiratory/Chest: Denies cough or dyspnea Gastrointestinal Gastrointestinal: Reports nausea; Denies vomiting Genitourinary Genitourinary ED: Reports dysuria and urinary frequency; Denies hematuria Musculoskeletal Musculoskeletal: Reports back pain; Denies neck pain Integumentary Denies abscess or rash Neurologic Neurologic: Reports weakness; Denies headache(s) Allergic/Immunologic Allergic/Immunologic ED: Denies mouth swelling or urticaria EXAM Physical Exam Const Vital Signs: 06/27/22 10:35 06/27/22 11:31 Temperature 97.2 F L Temperature Source Temporal Pulse Rate 107 H Pulse Rate [Lying] 85 Pulse Rate [Sitting (for 1 minute prior to obtaining)] 91 Pulse Rate [Standing (for 1 minute prior to obtaining)] 105 H Respiratory Rate 22 H Blood Pressure 114/80 Blood Pressure [Lying] 122/81 H Blood Pressure [Sitting (for 1 minute prior to obtaining)] 127/93 H Blood Pressure [Standing (for 1 minute prior to obtaining)] 135/101 H Blood Pressure Mean 91 Blood Pressure Mean [Lying] 94 Blood Pressure Mean [Sitting (for 1 minute prior to obtaining)] 104 Blood Pressure Mean [Standing (for 1 minute prior to obtaining)] 112 Pulse Ox 98 Oxygen Delivery Method Room Air Positive well nourished and well developed General Appearance ED: well developed and NAD HEENT Reports moist mucous membranes Neck supple and no JVD Resp normal respiratory effort and clear to auscultation bilaterally Cardio regular rate, regular rhythm and no murmurs GI normal to inspection, nondistended, normoactive bowel sounds Palpation: soft and tender LUQ, RUQ and suprapubic; Negative for guarding or rebound tenderness present Back/Spine General Back: CVA tenderness bilateral Extremity normal to inspection General Extremety ED: Negative for edema or tenderness General Extremity: Negative for edema Neuro oriented x3, CN's II-XII intact bilaterally and no sensory deficits noted Sensorium / Orientation: alert Motor Exam: strength 5/5 throughout Psych mental status grossly normal Skin no rashes or lesions noted MDM MDM MDM Narrative Medical decision making narrative: EKG was obtained. On my interpretation, it showed a normal sinus rhythm with a rate of 81. DC interval, QRS interval, and QTc intervals were all normal. [place] was normal. There are no acute ST or T wave changes. CBC was within normal limits. PT was INR and PTT were within normal limits. Comprehensive metabolic profile was obtained and was within normal limits. High-sensitivity troponin was normal. Lipase was normal. Lactate was normal. Serum hCG was negative. Urinalysis shows a leukocyte esterases of 100 with 10-25 white blood cells. There is 1+ bacteria. Urine culture was ordered. Orthostatic vital signs were obtained and were within normal limits. CT scan of the abdomen pelvis was obtained. There is no acute abnormality noted. This was interpreted by the radiologist and reviewed by myself. X-rays of the right knee were obtained. There are 4 views. On my interpretation, there is no acute fracture or dislocation. There are no degenerative changes noted. Radiologist also interpreted the x-rays and agrees. X-rays of the left knee were obtained. There are 4 views. On my interpretation, there is no acute fracture or dislocation. There are no degenerative changes noted. Radiologist also interpreted the x-rays and agrees. Patient was advised of her findings. Patient was given a dose of Bactrim here. Patient was given a prescription for Bactrim. Patient was instructed use ice to the knees. Patient was instructed to follow-up with her primary care physician in 5 to 7 days. Patient understood and was agreeable with the plan. All questions were answered. Lab Data Attestation: I reviewed the patient's lab results. Labs: Laboratory Results - last 24 hr 06/27/22 06/27/22 06/27/22 11:05 11:05 11:05 WBC 10.4 RBC 4.60 Hgb 13.9 Hct 41.2 MCV 89.6 MCH 30.2 MCHC 33.7 RDW Std Deviation 41.1 RDW Coeff of Jennifer 12.6 Plt Count 349 MPV 9.8 Immature Gran % (Auto) 0.500 Neut % (Auto) 62.1 Lymph % (Auto) 27.6 [place] % (Auto) 5.5 Eos % (Auto) 3.8 Baso % (Auto) 0.5 Absolute Neuts (auto) 6.5 Absolute Lymphs (auto) 2.88 Nucleated RBC % 0 PT 12.9 INR 1.0 APTT 25.9 Sodium 137 Potassium 3.8 Chloride 106 Carbon Dioxide 25.0 Anion Gap 6 BUN 16 Creatinine 0.66 Estim Creat Clear Calc 104.69 Est GFR (MDRD) Af Amer 133 Est GFR (MDRD) Non-Af 110 BUN/Creatinine Ratio 24.4 H Glucose 112 H Lactic Acid Calcium 9.1 Total Bilirubin 0.30 AST 14 L ALT 16 Alkaline Phosphatase 80 Troponin I High Sens < 3 L Total Protein 7.9 Albumin 3.7 Globulin 4.2 Albumin/Globulin Ratio 0.9 Lipase 167 Serum , Qual Urine Color Urine Clarity Urine pH Ur Specific [place] Urine Protein Urine Glucose (UA) Urine Ketones Urine Occult Blood Urine Nitrite Urine Bilirubin Urine Urobilinogen Ur Leukocyte Esterase Urine RBC Urine WBC Ur Squamous Epith Cells Urine Bacteria Urine Mucus 06/27/22 06/27/22 06/27/22 11:05 11:05 11:25 WBC RBC Hgb Hct MCV MCH MCHC RDW Std Deviation RDW Coeff of Jennifer Plt Count MPV Immature Gran % (Auto) Neut % (Auto) Lymph % (Auto) [place] % (Auto) Eos % (Auto) Baso % (Auto) Absolute Neuts (auto) Absolute Lymphs (auto) Nucleated RBC % PT INR APTT Sodium Potassium Chloride Carbon Dioxide Anion Gap BUN Creatinine Estim Creat Clear Calc Est GFR (MDRD) Af Amer Est GFR (MDRD) Non-Af BUN/Creatinine Ratio Glucose Lactic Acid 1.0 Calcium Total Bilirubin AST ALT Alkaline Phosphatase Troponin I High Sens Total Protein Albumin Globulin Albumin/Globulin Ratio Lipase Serum , Qual NEGATIVE Urine Color Yellow Urine Clarity Sl. Cloudy Urine pH 6.0 Ur Specific [place] 1.010 Urine Protein Negative Urine Glucose (UA) Normal Urine Ketones Negative Urine Occult Blood Negative Urine Nitrite Negative Urine Bilirubin Negative Urine Urobilinogen Normal Ur Leukocyte Esterase 100 H Urine RBC 0 SEEN Urine WBC 10-25 SEEN Ur Squamous Epith Cells 0-5 SEEN Urine Bacteria 1+ Urine Mucus 0 SEEN Radiography Diagnostic Testing: Clinical Impression(s) from Imaging Studies Abdomen/Pelvis CT 06/27/22 10:57 IMPRESSION: No acute disease seen. Electronically Signed: Devendra Vyas MD at 12:01 EDT , Knee X-Ray 06/27/22 13:08 IMPRESSION: Normal x-ray examination of the knee. Electronically Signed: Devendra Vyas MD at 13:31 EDT , Knee X-Ray 06/27/22 13:15 IMPRESSION: Normal x-ray examination of the knee. Electronically Signed: Devendra Vyas MD at 13:31 EDT , Discharge Plan Triage Chief Complaint: Back ED Provider: Ambrosio Jiang Dx/Rx/DC Orders Clinical Impression: Syncope, Urinary tract infection, Contusion of knee, left, Contusion of knee, right Instructions: ED Contusion, Lower Extremity, ED Fainting, Uncertain Cause, ED Cystitis Female Adult Prescriptions: New sulfamethoxazole-trimethoprim [sulfamethoxazole-trimethoprim] 800-160 mg tablet 1 tab PO BID Qty: 6 0RF No Action vit,[id number] 1 TABLET tablet 1 tab PO DAILY metformin 500 MG tablet 500 mg PO BID Qty: 60 0RF Rx Instructions: 1 po bid Primary Care Provider: Neida Pryor NP Referrals: Neida Pryor NP, [facility] [facility] [Primary Care Provider] - 5-7 Days Disposition Disposition: Home, Self Care
--- NOTE | 2022-06-27 10:56 | EKG12_ITS ---
Test Reason : BACK Blood Pressure : / mmHG Vent. Rate : 081 BPM Atrial Rate : 081 BPM P-R Int : 148 ms QRS Dur : 090 ms QT Int : 372 ms P-R-T Axes : 043 043 031 degrees QTc Int : 432 ms Normal sinus rhythm Normal ECG Confirmed by GEMMA ROY, MONTSERRAT ([id number]), telegraph editor DOMENICA RUSS ([id number]) on 06/28/2022 1:50:03 P M Referred By: ARYAN Confirmed By:IRAJ MENENDEZ MD
--- NOTE | 2022-06-27 10:57 | CT_ITS ---
STUDY: CT ABDOMEN AND PELVIS WITHOUT CONTRAST REASON FOR EXAM: Female, 31 years old. Bilateral flank pain fall last night. RADIATION DOSAGE (If Supplied By Facility): CTDIvol = ( 14.83 ) mGy, DLP = ( 743.73 ) mGycm TECHNIQUE: Transaxial images were obtained from the dome of the diaphragm to the symphysis pubis without oral contrast, and without intravenous contrast. Sagittal and coronal images were reconstructed. Individualized dose optimization techniques were used for this CT. COMPARISON: Comparison is made with prior study dated 10/23/2017. FINDINGS: The visualized lung bases are unremarkable. The visualized portions of the heart are within normal limits. Normal liver. Normal gallbladder and extrahepatic biliary system. Normal spleen. Normal pancreas. Normal bilateral adrenal glands. Normal right kidney. Normal left kidney. Normal visualized stomach. Normal small intestine. Normal colon. The appendix is visualized and appears normal. Normal abdominal aorta. Normal inferior vena cava. There is borderline retroperitoneal lymphadenopathy with enlarged nodes no greater than 10mm in the short axis diameter. Normal urinary bladder. Small follicles are seen in both ovaries. Normal abdominal wall. Normal osseous structures. CT/Abdomen/Pelvis without Cont IMPRESSION: No acute disease seen. Electronically Signed: Devendra Vyas MD at 12:01 EDT ,
[2022-06-27 11:24] LABS: Internal QC Validated? YES +Cl - CLEAR BKGD; Pregnancy, Serum, hCG Quali. NEGATIVE Negative
[2022-06-27 11:28] LABS: Absolute Lymphocyte Count 2.88 X10^3/uL (0.83-4.51); Absolute Neutrophil Count 6.5 X10^3/uL (2.0-7.7); Basophil# 0.05 X10^3/uL; Basophil% 0.5 % (0-1); Eosinophils% 3.8 % (0-5); Hematocrit 41.2 % (37-47); Hemoglobin 13.9 g/dL (12.0-15.0); Lymphocyte # 2.88 X10^3/ul (0.83-4.51); Lymphocyte % 27.6 % (19-41); Mean Corp Hgb Conc 33.7 g/dL (32-36); Mean Corpuscular Hgb 30.2 pg (27.0-32.0); Mean Corpuscular Volume 89.6 fL (81-99); Mean Platelet Vol. 9.8 fl (6.2-12.0); Monocyte# 0.57 X10^3/uL; Monocyte% 5.5 % (0-10); NRBC Flagged by Analyzer 0 % (0-5); Neutrophil # 6.48 X10^3/uL (2.7-7.7); Neutrophil % 62.1 % (47-70); Platelet Count 349 K/mm3 (150-450); RBC Distribution Width CV 12.6 % (11.6-14.6); RBC Distribution Width SD 41.1 fl (35.1-43.9); White Blood Count 10.4 K/mm3 (4.4-11.0)
[2022-06-27] MEDS: 0.9% Normal Saline 1,000 ML 1000 ML IV (11:29)
[2022-06-27] MEDS: Ondansetron 4 MG/2 ML Vial IV (11:30)
[2022-06-27 11:31] VITALS: BP 122/81; BP 127/93; BP 135/101; PULSE 105; PULSE 85; PULSE 91
[2022-06-27 11:32] LABS: Partial Thromboplast Time 25.9 Seconds (24.1-36.2); Prothrombin Time (Protime)PT. 12.9 SECONDS (11.7-14.9)
[2022-06-27 11:35] LABS: Albumin, Serum 3.7 g/dL (3.2-5.0); BUN 16 mg/dL (7-18); BUN/Creat Ratio 24.4 RATIO (10-20); Creatinine, Serum 0.66 mg/dL (0.55-1.02); EST Glomerular Filtration Rate 110 mL/min (>60); Est Glom Filt Rate - Afr Amer 133 mL/min (>60); Estimated Creatinine Clearance 104.69 ml/min; Globulin 4.2 g/dL (2.2-4.2); Glucose 112 mg/dL (74-106); Protein, Total 7.9 g/dL (6.4-8.2)
[2022-06-27 11:36] LABS: ALB/GLOB Ratio 0.9 RATIO (0.9-2.4); AST(SGOT) 14 U/L (15-37); Alanine Aminotransfer ALT/SGPT 16 U/L (13-56); Alkaline Phosphatase 80 U/L (45-117); Anion Gap 6 (5-15); Calcium,Total 9.1 mg/dL (8.5-10.1); Chloride 106 mmol/L (98-107); Lipase 167 U/L (73-393); Potassium 3.8 mmol/L (3.5-5.1); Sodium Level 137 mmol/L (136-145); Troponin-I HS < 3 pg/mL (3.0-54.0)
[2022-06-27 11:37] LABS: Mucous, Urine 0 SEEN /hpf (<or=2+); Red Blood Cells-Urine 0 SEEN /hpf (0-5)
[2022-06-27 11:38] LABS: Color, Urine Yellow (Yellow); Glucose, Dipstick Normal (Normal); Ketone-Dipstick Negative (Negative); Leukocyte Esterase-Dipstick 100 /ul (Negative); Nitrite-Dipstick Negative (Negative); Occult Blood-Urine Negative /ul (Negative); Protein-Dipstick Negative (Negative); Urine Bilirubin Dipstick Negative (Negative); Urine Clarity Sl. Cloudy (Clear); Urine Urobilinogen Normal (Normal)
[2022-06-27 11:44] LABS: Bacteria 1+ /hpf (None Seen); Squamous Epithelial Cells - UA 0-5 SEEN /hpf (5-10); White Blood Cells 10-25 SEEN /hpf (0-5)
--- NOTE | 2022-06-27 13:08 | RAD_ITS ---
STUDY: X-RAY - RIGHT KNEE REASON FOR EXAM: Female, 31 years old. Pain following a fall. TECHNIQUE: 4 view(s) of the knee. COMPARISON: None. FINDINGS: Normal visualized distal femur. Normal visualized proximal tibia and fibula. Normal proximal tibiofibular articulation. Normal medial femorotibial compartment. Normal lateral femorotibial compartment. Normal patellofemoral articulation. The soft tissue structures are unremarkable. RAD/Knee 4 or More Views IMPRESSION: Normal x-ray examination of the knee. Electronically Signed: Devendra Vyas MD at 13:31 EDT ,
--- NOTE | 2022-06-27 13:15 | RAD_ITS ---
STUDY: X-RAY - LEFT KNEE REASON FOR EXAM: Female, 31 years old. Knee pain following a fall. TECHNIQUE: 4 view(s) of the knee. COMPARISON: None. FINDINGS: Normal visualized distal femur. Normal visualized proximal tibia and fibula. Normal proximal tibiofibular articulation. Normal medial femorotibial compartment. Normal lateral femorotibial compartment. Normal patellofemoral articulation. The soft tissue structures are unremarkable. RAD/Knee 4 or More Views IMPRESSION: Normal x-ray examination of the knee. Electronically Signed: Devendra Vyas MD at 13:31 EDT ,
[2022-06-27] MEDS: Smz/Tmp Ds Tablet 1 TABLET PO (14:19)
== END 2022-06-27 14:24 | disposition home or self-care (01) ==
PROVIDERS: Emergency Provider Emergency Medicine; PCP Nurse Practitioner Family; Visit Provider Emergency Medicine
DX: N39.0 Urinary tract infection, site not specified (principal); R55 Syncope and collapse; R31.9 Hematuria, unspecified; R11.0 Nausea; S80.01XA Contusion of right knee, initial encounter; S80.02XA Contusion of left knee, initial encounter; R30.0 Dysuria; R35.0 Frequency of micturition; M54.9 Dorsalgia, unspecified; W10.9XXA Fall (on) (from) unspecified stairs and steps, initial encounter
CPT/HCPCS: 73564; 74176; 80053; 81001; 83605; 83690; 84484; 84703; 85025; 85610; 85730; 87040; 87086; 87088; 87428; 93005; 96361; 96374; 99285; J7030; A4216; J2405

== ENCOUNTER → 2022-10-05 | Outpatient (CLI) | payer BC, MEDICAID, SELFPAY ==
[2022-10-05 18:28] LABS: CRP 5.27 mg/L (0.0-3.0)
[2022-10-08 16:08] LABS: Endomysial Antibody IgA Negative (Negative)
[2022-10-08 18:40] LABS: Immunoglobulin A 179 mg/dL (87-352); t-Transglutaminase IgA <2 U/mL (0-3)
== END | disposition home or self-care (01) ==
LOC: MTLAB 14:20
PROVIDERS: PCP Nurse Practitioner Family; Referring Provider Internal Medicine Gastroenterology; Visit Provider Internal Medicine Gastroenterology
DX: R10.9 Unspecified abdominal pain (principal); R19.7 Diarrhea, unspecified
CPT/HCPCS: 36415; 82784; 83516; 86140; 86255

== ENCOUNTER 2023-04-23 20:24 | Emergency (ER) | payer BC, SELFPAY ==
[2023-04-23 20:25] VITALS: BP 123/91; PULSE 94; RESP 15; TEMP 36.7; O2SAT 99; BMI 31.1
--- NOTE | 2023-04-23 20:57 | CT_ITS ---
EXAM: CT ABDOMEN AND PELVIS WITH INTRAVENOUS CONTRAST CLINICAL INDICATION: Abdominal pain -- IV PO Contrast TECHNIQUE: Helically acquired images were obtained of the abdomen and pelvis with intravenous contrast. This CT exam was performed using one or more of the following dose reduction techniques: automated exposure control, adjustment of the mA and/or kV according to patient size, and/or use of iterative reconstruction technique. CONTRAST: Oral and amp; IV Gastrografin and amp; 100mL Isovue-300 RADIATION DOSE: CTDIvol = 18.98 mGy, DLP = 1141.33 mGy-cm COMPARISON: CT abdomen and pelvis 06/27/2022 FINDINGS: LOWER THORAX: Bibasilar dependent atelectasis. No cardiomegaly. No significant pericardial effusion. ABDOMEN: LIVER: Unremarkable. Homogeneous. No focal mass. GALLBLADDER AND BILE DUCTS: Unremarkable. No calcified gallstones. No gallbladder distention or wall edema. No intra- or extrahepatic biliary ductal dilation. PANCREAS: Unremarkable. No focal cystic or solid mass. SPLEEN: Unremarkable. Normal size without focal cystic or solid mass. ADRENALS: Unremarkable. No nodules. KIDNEYS AND URETERS: Unremarkable. Normal renal size and position. No hydronephrosis. STOMACH AND BOWEL: Unremarkable. No stomach or bowel distention. No focal inflammatory change. PELVIS: APPENDIX: The appendix is normal. BLADDER: Unremarkable. REPRODUCTIVE: Unremarkable as visualized. No mass. ABDOMEN and PELVIS: INTRAPERITONEAL SPACE: Unremarkable. No ascites or other fluid collection. No free air. BONES/JOINTS: Unremarkable. No suspicious lytic or blastic abnormality. SOFT TISSUES: Unremarkable. No discrete abdominal or pelvic wall hernia. VASCULATURE: Unremarkable. Abdominal aorta is non-dilated. LYMPH NODES: Unremarkable. No enlarged lymph nodes. CT/Abdomen/Pelvis WITH Contrast IMPRESSION: No acute findings in the abdomen or pelvis. Electronically Signed: Sharath Martínez MD at 23:47 EDT ,
[2023-04-23] MEDS: 0.9% Normal Saline 1,000 ML 1000 ML IV (21:15)
[2023-04-23] MEDS: Ondansetron 4 MG/2 ML Vial IV (21:16)
[2023-04-23] MEDS: Morphine 4 MG/ML Syringe IV (21:16)
[2023-04-23 21:27] LABS: Bacteria 0 SEEN /hpf (None Seen); Mucous, Urine 0 SEEN /hpf (<or=2+); Red Blood Cells-Urine 0 SEEN /hpf (0-5); White Blood Cells 0 SEEN /hpf (0-5)
[2023-04-23 21:29] LABS: Absolute Neutrophil Count 3.8 X10^3/uL (2.0-7.7); Basophil# 0.07 X10^3/uL; Basophil% 0.8 % (0-1); Eosinophil# 0.36 X10^3/uL; Hematocrit 38.5 % (37-47); Hemoglobin 12.9 g/dL (12.0-15.0); Lymphocyte % 44.5 % (19-41); Mean Corp Hgb Conc 33.5 g/dL (32-36); Mean Corpuscular Hgb 30.1 pg (27.0-32.0); Mean Corpuscular Volume 89.7 fL (81-99); Mean Platelet Vol. 9.9 fl (6.2-12.0); Monocyte# 0.75 X10^3/uL; Monocyte% 8.4 % (0-10); NRBC Flagged by Analyzer 0 % (0-5); Neutrophil # 3.76 X10^3/uL (2.7-7.7); Neutrophil % 41.9 % (47-70); POSITIVE MORPHOLOGY YES; Platelet Count 326 K/mm3 (150-450); RBC Distribution Width CV 12.5 % (11.6-14.6); RBC Distribution Width SD 40.4 fl (35.1-43.9); Red Blood Count 4.29 M/mm3 (4.2-5.4)
[2023-04-23 21:32] LABS: Differential Indicated SCAN CRITERIA MET
[2023-04-23 21:35] LABS: Color, Urine Straw (Yellow); Glucose, Dipstick Normal (Normal); Ketone-Dipstick Negative (Negative); Leukocyte Esterase-Dipstick Negative /ul (Negative); Nitrite-Dipstick Negative (Negative); Occult Blood-Urine Negative /ul (Negative); Protein-Dipstick Negative (Negative); Specific Gravity, Urine 1.005 (1.002-1.030); Urine Bilirubin Dipstick Negative (Negative); Urine Clarity Clear (Clear); Urine Urobilinogen Normal (Normal)
[2023-04-23 21:41] LABS: Squamous Epithelial Cells - UA 0-5 SEEN /hpf (5-10)
[2023-04-23 21:47] LABS: Internal QC Validated? YES +Cl - CLEAR BKGD; Pregnancy, Serum, hCG Quali. NEGATIVE Negative
[2023-04-23 21:53] LABS: ALB/GLOB Ratio 0.9 RATIO (0.9-2.4); AST(SGOT) 15 U/L (15-37); Alanine Aminotransfer ALT/SGPT 23 U/L (13-56); Albumin, Serum 3.3 g/dL (3.2-5.0); Alkaline Phosphatase 84 U/L (45-117); Anion Gap 7 (5-15); Atypical Lymphocyte 1+ %; BUN 10 mg/dL (7-18); BUN/Creat Ratio 10.5 RATIO (10-20); Calcium,Total 8.9 mg/dL (8.5-10.1); Chloride 108 mmol/L (98-107); Creatinine, Serum 0.96 mg/dL (0.55-1.02); EST Glomerular Filtration Rate 71 mL/min (>60); Est Glom Filt Rate - Afr Amer 86 mL/min (>60); Globulin 3.8 g/dL (2.2-4.2); Glucose 104 mg/dL (74-106); Lipase 49 U/L (13-75); Protein, Total 7.1 g/dL (6.4-8.2); Sodium Level 140 mmol/L (136-145)
[2023-04-23 21:54] LABS: Anisocytosis RARE; Platelet Estimate ADEQUATE (ADEQ); Platelet Morphology LARGE; Red Cell Morphology N CHROM NORMAL (NORM C&C)
--- NOTE | 2023-04-23 22:38 | ED.VIS.GI ---
HPI HPI - GI History of Present Illness Chief Complaint: Abd Pain Informant: patient Abdominal Pain/Flank Pain Onset: Days (6) Context: Gradual Onset Timing: Continuous Quality: Cramping Location: Epigastric, RUQ and RLQ Worsened by: Food Relieved by: - (Dicyclomine) Nausea/Vomiting/Emesis GI Symptom: Positive for Nausea; Negative for Vomiting Diarrhea/Melena/Hematochezia GI Symptom: Positive for Diarrhea; Negative for Melena or Hematochezia Associated Symptoms Associated Symptoms: Negative for Dysuria, Frequency or Hematuria LMP: 1 week ago Narrative Narrative: Patient is a with abdominal pain that has been constant for the past 6 days. Patient describes it as cramping. Patient states it came on gradually. Patient states the pain is over the epigastric area and radiates to the right upper quadrant and right lower quadrant. Patient states it is worse approximately 30 minutes after eating. Patient states that dicyclomine seems to help with the pain. Patient admits to some nausea but denies any vomiting. Patient admits to some diarrhea but denies any melena or hematochezia. Patient denies any dysuria, frequency, or hematuria. Patient denies any abnormal vaginal bleeding or discharge. Patient states she has had an EGD which showed gastritis. Patient states she has also had a HIDA scan which was negative. [facility] Medical History Abdominal pain Acid reflux Anxiety Pilonidal cyst Home Medications vits,calcium no.78-iron fumarate-folic acid 29 mg-1 mg tablet 1 tab PO DAILY 09/10/19 [History Last Taken Unknown] metformin 500 mg tablet 500 mg PO BID diabetes #60 tabs 09/12/19 [Rx Last Taken Unknown] sulfamethoxazole 800 mg-trimethoprim 160 mg tablet 1 tab PO BID #6 TABLETS 06/27/22 [Rx Last Taken Unknown] Allergy/AdvReac Type Severity Reaction Status Date / Time Penicillins [PCN] Allergy Rash Verified 04/23/23 20:29 Family History (Updated 05/06/18 @ 08:48 by Sylvia Laws) Grandmother Breast cancer Diabetes Kidney disease Mother Diabetes CVA (cerebral vascular accident) Father Diabetes Sister Diabetes Surgical History history excision ectopic Social History Smoking Status: Never smoker alcohol intake: never substance use type: does not use ROS ROS ED Constitutional Constitutional ED: Denies chills or fever(s) Eyes Eyes: Denies blurry vision or change in vision ENT ENT ED: Denies rhinorrhea or sore throat Cardiovascular Cardiovascular: Denies chest pain or palpitations Respiratory/Chest Respiratory/Chest: Denies cough or dyspnea Gastrointestinal Gastrointestinal: Reports abdominal pain, diarrhea and nausea; Denies vomiting Genitourinary Genitourinary ED: Denies dysuria or hematuria Musculoskeletal Musculoskeletal: Denies back pain or neck pain Integumentary Denies abscess or rash Neurologic Neurologic: Denies headache(s) or weakness Allergic/Immunologic Allergic/Immunologic ED: Denies mouth swelling or urticaria EXAM Physical Exam Const Vital Signs: 04/23/23 20:25 Temperature 98.1 F Temperature Source Temporal Pulse Rate 94 Respiratory Rate 15 Blood Pressure 123/91 H Blood Pressure Mean 101 Pulse Ox 99 Oxygen Delivery Method Room Air Positive well nourished and well developed General Appearance ED: well developed HEENT Reports moist mucous membranes Neck supple and no JVD Resp normal respiratory effort and clear to auscultation bilaterally Cardio regular rate, regular rhythm and no murmurs GI normal to inspection, nondistended, normoactive bowel sounds Palpation: soft and tender epigastric, RLQ and RUQ; Negative for guarding or rebound tenderness present Extremity normal to inspection General Extremety ED: Negative for edema or tenderness General Extremity: Negative for edema Neuro oriented x3, CN's II-XII intact bilaterally and no sensory deficits noted Sensorium / Orientation: alert Motor Exam: strength 5/5 throughout Psych mental status grossly normal Skin no rashes or lesions noted MDM MDM MDM Narrative Medical decision making narrative: Differential diagnosis includes gastritis, cholecystitis, cholelithiasis, peptic ulcer disease, duodenal ulcer, pancreatitis, pyelonephritis, ureteral calculus, urinary tract infection, and colitis. CBC will be obtained to assess for leukocytosis and anemia. Comprehensive metabolic profile will be obtained to assess for hepatic function, renal function, and electrolyte abnormality. Lipase will be obtained to assess for pancreatitis. Urinalysis will be obtained to assess for urinary tract infection and hematuria. Serum hCG will be obtained to assess for . Lab Data Attestation: I reviewed the patient's lab results. Lab results narrative: CBC was reviewed and was within normal limits. Comprehensive metabolic profile was reviewed. Potassium was slightly low at 3.0. The remainder was within normal limits. Lipase was reviewed and was normal at 49. Serum hCG was reviewed and was negative. Urinalysis was reviewed. There is no evidence of urinary tract infection or hematuria. Labs: Laboratory Results - last 24 hr 04/23/23 21:20 WBC 9.0 RBC 4.29 Hgb 12.9 Hct 38.5 MCV 89.7 MCH 30.1 MCHC 33.5 RDW Std Deviation 40.4 RDW Coeff of Jennifer 12.5 Plt Count 326 MPV 9.9 Immature Gran % (Auto) 0.400 Neut % (Auto) 41.9 L Lymph % (Auto) 44.5 H [place] % (Auto) 8.4 Eos % (Auto) 4.0 Baso % (Auto) 0.8 Absolute Neuts (auto) 3.8 Absolute Lymphs (auto) 4.00 Nucleated RBC % 0 Atypical Lymphocytes 1+ Platelet Estimate ADEQUATE Plt Morphology Comment LARGE RBC Morphology N CHROM Anisocytosis RARE Sodium 140 Potassium 3.0 L Chloride 108 H Carbon Dioxide 25.0 Anion Gap 7 BUN 10 Creatinine 0.96 Estim Creat Clear Calc 74.30 Est GFR (MDRD) Af Amer 86 Est GFR (MDRD) Non-Af 71 BUN/Creatinine Ratio 10.5 Glucose 104 Calcium 8.9 Total Bilirubin 0.20 AST 15 ALT 23 Alkaline Phosphatase 84 Total Protein 7.1 Albumin 3.3 Globulin 3.8 Albumin/Globulin Ratio 0.9 Lipase 49 Serum , Qual NEGATIVE Urine Color Straw Urine Clarity Clear Urine pH 7.0 Ur Specific [place] 1.005 Urine Protein Negative Urine Glucose (UA) Normal Urine Ketones Negative Urine Occult Blood Negative Urine Nitrite Negative Urine Bilirubin Negative Urine Urobilinogen Normal Ur Leukocyte Esterase Negative Urine RBC 0 SEEN Urine WBC 0 SEEN Ur Squamous Epith Cells 0-5 SEEN Urine Bacteria 0 SEEN Urine Mucus 0 SEEN Radiography Diagnostic Testing: Clinical Impression(s) from Imaging Studies Abdomen/Pelvis CT 04/23/23 20:57 IMPRESSION: No acute findings in the abdomen or pelvis. Electronically Signed: Sharath Martínez MD at 23:47 EDT , CT scan of the abdomen pelvis was obtained. There is no free air or free fluid. There is no evidence of obstruction or perforation. There is no evidence of pancreatitis. This was interpreted by the radiologist and was also independently reviewed by myself. Treatment and Re-Evaluation :: Patient was given morphine and Zofran here. Patient was given a dose of oral potassium. Patient was advised of her findings. Patient was instructed to start with a bland diet and advance as tolerated. Patient was instructed to follow-up with her primary care physician in 5 to 7 days. Patient understood and was agreeable with the plan. All questions were answered. Discharge Plan Triage Chief Complaint: Abd Pain ED Provider: Ambrosio Jiang Dx/Rx/DC Orders Clinical Impression: Abdominal pain, Hypokalemia Instructions: ED Abdominal Pain Unkn Cause Fem Prescriptions: No Action vit,[id number] 1 TABLET tablet 1 tab PO DAILY metformin 500 MG tablet 500 mg PO BID Qty: 60 0RF Rx Instructions: 1 po bid sulfamethoxazole-trimethoprim [sulfamethoxazole-trimethoprim] 800-160 mg tablet 1 tab PO BID Qty: 6 0RF Primary Care Provider: Neida Pryor NP Referrals: Neida Pryor NP, [facility] [facility] [Primary Care Provider] - 5-7 Days Disposition Disposition: Home, Self Care
[2023-04-24] MEDS: Potassium Chloride Oral Tablet 20 MEQ 40 MEQ PO (00:14)
== END 2023-04-24 00:16 | disposition home or self-care (01) ==
PROVIDERS: Emergency Provider Emergency Medicine; PCP Nurse Practitioner Family; Visit Provider Emergency Medicine
DX: R10.9 Unspecified abdominal pain (principal); E87.6 Hypokalemia; R19.7 Diarrhea, unspecified
CPT/HCPCS: 74177; 80053; 81001; 83690; 84703; 85025; 96361; 96374; 96375; 99284; J7030; Q9967; J2405

== ENCOUNTER → 2024-01-03 | Outpatient (CLI) | payer BC, SELFPAY ==
[2024-01-06 19:07] LABS: QNTFERON TB Mitogen Value > 10.00 IU/mL (.); QNTFERON TB Nil Value 0.02 IU/mL (.); QNTFERON TB1+ Ag Value 0.02 IU/mL (.); QNTFERON TB2+ Ag Value 0.02 IU/mL (.); QNTIFERON TB Positive Criteria Negative (Negative)
== END | disposition home or self-care (01) ==
LOC: MTLAB 15:26
PROVIDERS: PCP Nurse Practitioner Family; Referring Provider Physician Assistant Medical; Visit Provider Physician Assistant Medical
DX: L40.0 Psoriasis vulgaris (principal); L73.2 Hidradenitis suppurativa; Z79.899 Other long term (current) drug therapy
CPT/HCPCS: 36415; 86480